=== PATIENT | male | born 1965 ===

== ENCOUNTER 2017-05-17 14:01 | Emergency (ER) | payer OTHER ==
[2017-05-17 14:16] VITALS: BP 127/89
--- NOTE | 2017-05-17 15:44 | Emergency Department Report ---
HPI - General Chief Complaint: Earache Time Seen by Provider: 05/17/17 15:03 - HPI HPI: Patient he reports that he has left ear pain for 3 days. Denies any trauma. He said he has had similar incident in the past. Reports pain is 9 out of 10 and feels achy. He said he took [id number] Motrin but it did not help. Denies any fever or chills. Denies any nasal congestion or runny nose. Pain is worse when he opened his mouth. ED Past Medical Hx - Past Medical History Previous Medical History?: No - Surgical History Past Surgical History?: Yes Additional Surgical History: tonsillectomy - Family History Family history: hypertension - Social History Smoking Status: Never Smoker Substance Use Type: None - Medications Home Medications: Home Medications Medication Instructions Recorded Confirmed Last Taken Type Mupirocin [Bactroban 2% Oint] 1 applic TP TID #1 tube 04/20/13 Unknown Rx Penicillin Vk [Veetids TAB] 250 mg PO QID 10 Days 11/05/14 Unknown Rx Amoxicillin [Trimox CAP] 500 mg PO Q8H #21 capsule 02/03/15 Unknown Rx HYDROcodone/APAP 5-325 [[place] 1 each PO Q6HR PRN #13 tablet 02/03/15 Unknown Rx 5-325 mg TAB] Ibuprofen [Motrin 800 MG tab] 800 mg PO Q8HR PRN #30 tablet 02/03/15 Unknown Rx Loratadine/Pseudoephedrine 1 tab PO DAILY #30 tablet 02/03/15 Unknown Rx [Claritin-D 24Hr] Cyclobenzaprine [Flexeril 10 MG 10 mg PO TID PRN #20 tablet 04/16/15 Unknown Rx TAB] traMADol [Ultram 50 MG tab] 50 mg PO Q6HR PRN #20 tablet 04/16/15 Unknown Rx Amoxicillin [Amoxicillin TAB] 875 mg PO BID #20 tablet 05/17/17 Unknown Rx Ibuprofen [Motrin 800 MG tab] 800 mg PO Q8HR PRN #15 tablet 05/17/17 Unknown Rx Neomy/Polymyx B/Hc (Otic) Soln 4 drops OTIC TID #1 bottle 05/17/17 Unknown Rx [Cortisporin (Otic) Soln] ED Review of Systems ROS: Stated complaint: EAR INFECTION Other details as noted in HPI Comment: All other systems reviewed and negative Constitutional: no symptoms reported ENT: ear pain. denies: throat pain, hearing loss, epistaxis, congestion Respiratory: no symptoms reported Cardiovascular: denies: chest pain, palpitations, edema, syncope Gastrointestinal: denies: abdominal pain, nausea, vomiting, diarrhea Musculoskeletal: denies: back pain, joint swelling, arthralgia, myalgia Skin: denies: rash Neurological: denies: headache, weakness, numbness, paresthesias, confusion, abnormal gait, vertigo Physical Exam - Physical Exam Vital Signs: Vital Signs 05/17/17 14:14 Temperature 98.8 F Pulse Rate 102 H Respiratory 18 Rate Blood Pressure 127/89 O2 Sat by Pulse 96 Oximetry Vital Signs 05/17/17 05/17/17 14:14 15:44 Temperature 98.8 F Pulse Rate 102 H 78 Respiratory 18 Rate Blood Pressure 127/89 O2 Sat by Pulse 96 Oximetry General: This is a 51-year-old male well-nourished well-developed in no acute distress. Physical Exam: Head: Normocephalic atraumatic Ears:BIateral TM congested with lt tm erythema and loss of bony landmarks. LT tragus TTP. lt EAC with redness ,swelling , NO DRAINAGE. No mastoid bone tenderness. Mouth: Moist, no pharyngeal erythema or exudate . . No tonsillar erythema or exudate. UVULA midline and oral airways patent. Neck: Nontender to palpate, supple, normal range of motion. No adenopathy. No c- spine tenderness. Nose: Moist, normal mucosa .Maxillary and frontal sinuses nontender to palpate. Eyes: Sclerae and conjunctiva without injection. Bilateral pupils equal and reactive to light. Bilateral lids are normal. Normal accommodation.BEOMI Lungs: Clear to auscultate bilaterally, no rhonchi wheezes or rales. Normal work of breathing and no chest wall tenderness CV: S1, S2. Regular rate and rhythm negative murmur. Capillary refill is less than 3 seconds Skin: Clean dry and intact, no rashes or lesions Psych: Normal mood and behavior ED Course Vital Signs 05/17/17 14:14 Temperature 98.8 F Pulse Rate 102 H Respiratory 18 Rate Blood Pressure 127/89 O2 Sat by Pulse 96 Oximetry Vital Signs 05/17/17 05/17/17 14:14 15:44 Temperature 98.8 F Pulse Rate 102 H 78 Respiratory 18 Rate Blood Pressure 127/89 O2 Sat by Pulse 96 Oximetry - Reevaluation(s) Reevaluation #1: 05/17/17 15:45 Patient is stable in no acute distress. ED Medical Decision Making - Medical Decision Making ED course: Patient with complaint of earache to his left ear. Physical findings for otitis media and externa. This is discussed the patient along with treatment plan. I told him that he will need to follow up with his primary care physician in 3-5 days. Patient discharged home with prescription for Cortisporin Otic, Motrin and amoxicillin. Critical care attestation.: If time is entered above; I have spent that time in minutes in the direct care of this critically ill patient, excluding procedure time. ED Disposition Clinical Impression: Otalgia, left ear, Otalgia of left ear Otitis media Qualifiers: Otitis media type: suppurative Chronicity: unspecified Laterality: left Qualified Code(s): H66.42 - Suppurative otitis media, unspecified, left ear Otitis externa of left ear Qualifiers: Otitis externa type: unspecified type Chronicity: acute Qualified Code(s): H60.502 - Unspecified acute noninfective otitis externa, left ear Disposition: DC-01 TO HOME OR SELFCARE Is pt being admited?: No Does the pt Need Aspirin: No Condition: Stable Instructions: Otitis Media (ED), Otitis Externa (ED) Additional Instructions: Please follow-up with your primary care physician in 3-5 days for ear infection. Take antibiotic as prescribed Avoid getting fluid in your ears Prescriptions: Amoxicillin [Amoxicillin TAB] 875 mg PO BID #20 tablet Ibuprofen [Motrin 800 MG tab] 800 mg PO Q8HR PRN #15 tablet PRN Reason: Ear Pain Neomy/Polymyx B/Hc (Otic) Soln [Cortisporin (Otic) Soln] 4 drops OTIC TID #1 bottle Referrals: PRIMARY CARE, [Primary Care Provider] - 3-5 Days Forms: Work/School Release Form(ED)
== END 2017-05-17 16:07 | disposition home or self-care (01) ==
LOC: ED 14:01
DX: H66.42 Suppurative otitis media, unspecified, left ear (principal); H60.502 Unspecified acute noninfective otitis externa, left ear
CPT/HCPCS: 99282